=== PATIENT | male | born 1940 | race Caucasian/White ===

== ENCOUNTER 2018-03-27 07:06 | Emergency (ER) | payer MEDICARE, OTHER ==
[~2018-03-27] VITALS: Ht 177.8 cm; Wt 81.6 kg
[2018-03-27] MEDS ORDERED: LIDOCAINE 2% JELLY 6ML IN APPLICATOR. MM ONE (07:15)
[2018-03-27] MEDS ORDERED: LIDOCAINE 2% JELLY 6ML IN APPLICATOR. ONE (07:16)
--- NOTE | 2018-03-27 07:17 | PHYS DOC ---
Past Medical History Past Medical History: CAD Additional Past Medical Histor: Prostatic hypertrophy Past Surgical History: Coronary Bypass Surgery Additional Past Surgical Histo: TURP Smoking: Cigarettes (The patient is a nonsmoker.) Adult General Chief Complaint Chief Complaint: URINARY RETENTION HPI HPI Patient is a 77-year-old male who presents to the emergency department for evaluation. He states he has had problems with urinary retention, and has had a Orantes catheter for 4 months. He states 12 days ago, at [facility], he underwent a TURP, with postoperative placement of a Orantes catheter. He states yesterday, he went to see his urologist, and had his Orantes catheter removed. He states that since that time he has been unable to urinate, although he has tried to self catheterize himself several times on his urologist 's directions. He presents complaining of urinary retention and bladder spasms. He states he has been on Flomax, but was taken off of that for his surgery. He had also been on Plavix which was stopped. He has not taken any antibiotics as far as he is aware. There are no alleviating or exacerbating factors to his symptoms. A bedside bladder scan upon arrival reveals greater than 700 mL of urine in the patient's bladder. Review of Systems Review of Systems Constitutional: Denies fever or chills [] Eyes: Denies change in visual acuity, redness, or eye pain [] HENT: Denies nasal congestion or sore throat [] Respiratory: Denies cough or shortness of breath [] Cardiovascular: The patient denies any shortness of breath, chest pain, palpitations, or orthopnea [] GI: Denies nausea, vomiting, bloody stools or diarrhea. Reports generalized lower abdominal pain. [] : Denies dysuria or gross hematuria [] Musculoskeletal: Denies back pain or joint pain [] Integument: Denies rash or skin lesions [] Neurologic: Denies headache, focal weakness or sensory changes [] Endocrine: Denies polyuria or polydipsia [] All other systems were reviewed and found to be within normal limits, except as documented in this note. Current Medications Current Medications Current Medications Medications (Trade) Dose Ordered Sig/Sagar Start Time Stop Time Status Last Admin Dose Admin Lidocaine HCl (Glydo (Lidocaine) Jelly) 6 treasure [place] ([place]) IT ONCE 03/27/18 07:16 03/27/18 07:17 DC Morphine Sulfate (Morphine Sulfate) 4 mg 1X ONCE 03/27/18 08:15 03/27/18 08:16 DC 03/27/18 08:16 4 MG Allergies Allergies Allergies Coded Allergies Type Severity Reaction Last Updated Verified Antihistamines - Alkylamine Allergy Intermediate 03/27/18 Yes Sulfa (Sulfonamide Antibiotics) Allergy Intermediate 03/27/18 Yes erythromycin base Allergy Intermediate 03/27/18 Yes Physical Exam Physical Exam PHYSICAL EXAM: CONSTITUTIONAL: Well developed, well nourished, the patient is moaning in pain from his lower abdominal pain HEAD: normocephalic, atraumatic EENT: PERRL, EOMI. Conjunctivae normal color, sclerae non-icteric; moist mucous membranes. NECK: Supple, non-tender; no meningismus. LUNGS: Lungs CTA, breathing even and unlabored. Normal air movement. HEART: Regular rate and rhythm, no murmur CHEST: No deformity; non-tender ABDOMEN: The abdomen is soft, there is diffuse tenderness to palpation to the entire lower abdomen with firmness in the lower abdomen involuntary guarding, the upper abdomen is soft and relatively non-tender, no masses or bruits. EXTREM: Normal ROM; no deformity, no calf tenderness. Normal pulses palpable in all extremities. There is no pedal edema. SKIN: No rash; no diaphoresis NEURO: Alert; normal speech and cognition; CN's grossly intact; strength grossly intact without focal deficit. BACK: No CVA TTP. Current Patient Data Vital Signs Vital Signs Date Time Temp Pulse Resp B/P (MAP) Pulse Ox O2 Delivery O2 Flow Rate FiO2 03/27/18 08:16 20 97 Room Air 03/27/18 07:11 97.8 105 164/110 (128) 97.8 Lab Values Laboratory Tests Test 03/27/18 07:30 Urine Collection Type Unknown Urine Color Miladys Urine Clarity Turbid Urine pH 5.5 Urine Specific [place] 1.020 Urine Protein 100 mg/dL (NEG-TRACE) Urine Glucose (UA) Negative mg/dL (NEG) Urine Ketones (Stick) Trace mg/dL (NEG) Urine Blood Large (NEG) Urine Nitrite Positive (NEG) Urine Bilirubin Negative (NEG) Urine Urobilinogen Dipstick 0.2 mg/dL (0.2 mg/dL) Urine Leukocyte Esterase Large (NEG) Urine RBC 20-40 /HPF (0-2) Urine WBC >40 /HPF (0-4) Urine Squamous Epithelial Cells None /LPF Urine Bacteria Moderate /HPF (0-FEW) EKG EKG [] Radiology/Procedures Radiology/Procedures [] Course & Med Decision Making Course & Med Decision Making Pertinent Labs and Imaging studies reviewed. (See chart for details) [8:20 AM: The patient's condition has improved significantly, he had about 1000 mL of urine out initially bloody, but then clearing, after placement of the Orantes catheter. He is feeling much better. I discussed urine test results, the need for close follow-up with his urologist, and return precautions.] Dragon Disclaimer Dragon Disclaimer This electronic medical record was generated, in whole or in part, using a voice recognition dictation system. Departure Departure Impression: Primary Impression: Urinary retention Additional Impression: UTI (urinary tract infection) Disposition: HOME, SELF-CARE Condition: STABLE Referrals: STANTON MACKEY (PCP) Patient Instructions: Orantes Catheter Care, Adult, Urinary Retention, Acute, Male, Urinary Tract Infection Scripts Oxybutynin Chloride (DITROPAN XL) 5 Mg Tab.er.24 1 TAB PO DAILY PRN for Bladder Spasm, #20 TAB 5 Refills Prov: CHAVEZ SIDHU MD 03/27/18 Acetaminophen With Codeine (TYLENOL WITH CODEINE #3 TABLET) 1 Each Tablet 1 TAB PO PRN Q6HRS PRN for PAIN, #15 TAB Prov: CHAVEZ SIDHU MD 03/27/18 Ciprofloxacin Hcl (CIPRO) 500 Mg Tablet 1 TAB PO BID, #14 TAB Prov: CHAVEZ SIDHU MD 03/27/18 Problem Qualifiers CHAVEZ SIDHU MD Mar 27, 2018 07:17
[2018-03-27 07:50] LABS: BILIRUBIN,URINE NEGATIVE (NEG); CLARITY,URINE TURBID; COLOR,URINE AMBER; NITRITE,URINE POSITIVE (NEG); PH,URINE 5.5; PROTEIN,URINE 100 mg/dL (NEG-TRACE); UROBILINOGEN,URINE 0.2 mg/dL (0.2 mg/dL)
[2018-03-27 08:01] LABS: BACTERIA,URINE MODERATE /HPF (0-FEW); RBC,URINE 20-40 /HPF (0-2); WBC,URINE >40 /HPF (0-4)
[2018-03-27] MEDS ORDERED: MORPHINE SULFATE 4 MG/ML VIAL. IV ONE (08:15)
[2018-03-27] MEDS ORDERED: CIPR500T94 PO (08:28)
[2018-03-27] MEDS ORDERED: ACET-704 PO (08:28)
[2018-03-27] MEDS ORDERED: OXYB5TAB33 PO (08:28)
[2018-03-27] MEDS ORDERED: cefTRIAXone IV Push 1 GM VIAL. IVP ONE (08:45)
[2018-03-27 09:05] VITALS: BP 129/69
== END 2018-03-27 09:05 | disposition home or self-care (01) ==
LOC: ER 07:06
DX: N39.0 Urinary tract infection, site not specified (principal); R33.9 Retention of urine, unspecified; I25.10 Atherosclerotic heart disease of native coronary artery without angina pectoris; Z95.1 Presence of aortocoronary bypass graft; Z88.2 Allergy status to sulfonamides; Z88.1 Allergy status to other antibiotic agents; Z88.8 Allergy status to other drugs, medicaments and biological substances
CPT/HCPCS: 51702; 81001; 87086; 87186; 96374; 96375; 99284; J0696; J2270